=== PATIENT | male | born 1950 | race Caucasian/White ===

== ENCOUNTER → 2020-01-05 | Outpatient (CLI) | payer MEDICARE, OTHER ==
--- NOTE | 2020-01-06 14:35 | Pulmonary Function Test ---
Pulmonary Function Test Date of Procedure:: 01/05/20 - Received 01/06/20 INDICATION:: Dyspnea Referring Provider: Sulma CRUZ Button Decorating Machine Operator: Dianne Grant PROGRAM STRATEGIST - Report Spirometry: Spirometry: pre-FVC: 3.99 L 106% post-FVC: 3.85 L 101% pre-FEV:1 2.19 L 73% post-FEV1: 2.30 L 76% pre-FEV1/FVC %: 55 post-FEV1/FVC%: 60 predicted: 79 [id number]%: 0.66 L 22% [id number]%: 0.94 L 31% Impression: Moderate obstructive ventilatory defect. Mild response to bronchodilator therapy.
== END ==
LOC: RT 15:37
PROVIDERS: ATTEND Physician Assistant
DX: J44.9 Chronic obstructive pulmonary disease, unspecified (principal)
CPT/HCPCS: 94060